=== PATIENT | female | born 1995 | race Caucasian/White ===

== ENCOUNTER 2022-04-01 20:28 | Inpatient (IN) | payer OTHER ==
[~2022-04-01] VITALS: Ht 170.2 cm; Wt 106.1 kg
[~2022-04-01 20:28] MED LIST: COLACE100 MG PO; IBUPROFEN800 MG PO
[2022-04-01 22:50] LABS: HCT 34.3 % (37.0-47.0); HGB 10.9 g/dl (12.5-16.0); MCH 28.5 pg (25.0-31.0); MCHC 31.8 g/dL (32.0-36.0); MCV 89.6 fL (78.0-100.0); MPV 10.5 fL (6.0-9.5); RBC 3.83 M/uL (4.20-5.40); RDW 13.2 % (11.5-14.0); WBC 9.2 K/uL (4.0-10.5)
[2022-04-01 22:51] LABS: BILIRUBIN NEGATIVE (NEGATIVE); BLOOD NEGATIVE Ery/uL (NEGATIVE); CLARITY CLEAR (CLEAR); COLOR YELLOW (YELLOW); GLUCOSE (U) NORMAL (NORMAL); LEUKOCYTES NEGATIVE Leu/uL (NEGATIVE); NITRITE NEGATIVE (NEGATIVE); PROTEIN TRACE (LOW) mg/dL (NEGATIVE); SPECIFIC GRAVITY >=1.030 (1.001-1.030)
[2022-04-01 23:04] LABS: AMPHETAMINES NEGATIVE (NEGATIVE); BARBITURATES NEGATIVE (NEGATIVE); ECSTASY (MDMA) NEGATIVE (NEGATIVE); MARIJUANA (THC) NEGATIVE (NEGATIVE); METHADONE NEGATIVE (NEGATIVE); OPIATES NEGATIVE (NEGATIVE); OXYCODONE NEGATIVE (NEGATIVE)
[2022-04-01 23:11] LABS: BACTERIA TRACE; SQUAMOUS EPITHELIAL CELLS RARE; URINARY WBC RARE
[2022-04-03 05:47] LABS: HCT 24.2 % (37.0-47.0); HGB 7.8 g/dL (12.5-16.0)
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
[2022-04-04 07:02] LABS: HCT 24.7 % (37.0-47.0); HGB 7.8 g/dl (12.5-16.0); MCH 28.8 pg (25.0-31.0); MCHC 31.6 g/dL (32.0-36.0); MCV 91.1 fL (78.0-100.0); MPV 10.1 fL (6.0-9.5); RBC 2.71 M/uL (4.20-5.40); RDW 13.8 % (11.5-14.0); WBC 9.6 K/uL (4.0-10.5)
== END 2022-04-04 13:35 | disposition home or self-care (01) | DRG 787 ==
LOC: FOB 20:28
PROVIDERS: Obstetrics & Gynecology; ADMIT Obstetrics & Gynecology
PROC: 3E0P7VZ Introduction of Hormone into Female Reproductive, Via Natural or Artificial Opening (ICD-10-PCS; 2022-04-02)
PROC: 10D00Z1 Extraction of Products of Conception, Low, Open Approach (ICD-10-PCS; principal; 2022-04-02 12:00)
DX: O99.214 Obesity complicating childbirth (principal); D62 Acute posthemorrhagic anemia; O36.63X0 Maternal care for excessive fetal growth, third trimester, not applicable or unspecified; Z37.0 Single live birth; Z3A.40 40 weeks gestation of pregnancy; O48.0 Post-term pregnancy; Z62.810 Personal history of physical and sexual abuse in childhood; O99.02 Anemia complicating childbirth; D50.9 Iron deficiency anemia, unspecified; O32.8XX0 Maternal care for other malpresentation of fetus, not applicable or unspecified; O72.1 Other immediate postpartum hemorrhage; O75.5 Delayed delivery after artificial rupture of membranes; O99.334 Smoking (tobacco) complicating childbirth; F17.210 Nicotine dependence, cigarettes, uncomplicated; O99.324 Drug use complicating childbirth; F12.90 Cannabis use, unspecified, uncomplicated; O99.344 Other mental disorders complicating childbirth; F31.9 Bipolar disorder, unspecified; F41.9 Anxiety disorder, unspecified
CPT/HCPCS: 36415; 80305; 81001; 85014; 85018; 86850; 86900; 86901; J0456; J0690; J1885; J2274; J2300; J2370; J2405; J2550; J2795; J2916; J7050; J7120; U0002

== ENCOUNTER 2022-06-22 07:37 | Emergency (ER) | payer OTHER ==
[2022-06-22 09:06] LABS: BASOPHIL 0.2 % (0-2); EOSINOPHIL 0.1 % (0-5); HCT 41.2 % (37.0-47.0); HGB 13.5 g/dl (12.5-16.0); LYMPHOCYTE 12.1 % (15-48); MCH 28.8 pg (25.0-31.0); MCHC 32.8 g/dL (32.0-36.0); MONOCYTE 10.3 % (0-12); MPV 9.7 fL (6.0-9.5); NEUTROPHIL 76.9 % (41-80); NRBC 0; PLT 312 K/uL (150-400); RBC 4.68 M/uL (4.20-5.40); RDW 14.5 % (11.5-14.0); WBC 11.4 K/uL (4.0-10.5)
[2022-06-22 09:56] LABS: BUN/CREAT RATIO (CALC) 19.7 RATIO; CREATININE 0.71 mg/dL (0.51-0.95); POTASSIUM 3.8 mmol/L (3.5-5.1)
[2022-06-22 10:27] LABS: BILIRUBIN 1+ mg/dL (NEGATIVE); BLOOD NEGATIVE Ery/uL (NEGATIVE); CLARITY CLEAR (CLEAR); COLOR YELLOW (YELLOW); GLUCOSE (U) NORMAL (NORMAL); LEUKOCYTES NEGATIVE Leu/uL (NEGATIVE); NITRITE NEGATIVE (NEGATIVE); PROTEIN 1+ mg/dL (NEGATIVE); SPECIFIC GRAVITY >=1.030 (1.001-1.030)
[2022-06-22 10:34] LABS: BACTERIA 1+
[2022-06-22 10:35] LABS: MUCOUS TRACE
[2022-06-22 17:08] LABS: INR 1.02 (0.9-1.2); PROTHROMBIN TIME 13.1 SECONDS (11.9-13.9); PTT 31.7 SECONDS (24.9-34.6)
== END 2022-06-22 19:47 | disposition other institution (70) ==
LOC: FER 07:37
PROVIDERS: Emergency Medicine
DX: I26.99 Other pulmonary embolism without acute cor pulmonale (principal); F17.200 Nicotine dependence, unspecified, uncomplicated; Z28.310 Unvaccinated for COVID-19
CPT/HCPCS: 36415; 71045; 71275; 80048; 81001; 85025; 85379; 85610; 85730; 93970; J1644; J1885; Q9967